=== PATIENT | male | born 1995 | race Caucasian/White ===

== ENCOUNTER 2021-08-29 03:32 | Emergency (ER) | payer SELFPAY ==
[~2021-08-29] VITALS: Ht 177.8 cm; Wt 90.0 kg
--- NOTE | 2021-08-29 04:09 | PHYS DOC ---
General Adult EDM: Chief Complaint: ABDOMINAL PAIN HPI: HPI: Patient is a 26 year old male who presents here with left lower quadrant abdominal pain, which has been intermittent but progressive for the past few months. The pain seemed worse last night, there was improved at present. He reports occasional nausea and vomiting. He denies acute bowel habit changes. He denies fevers or chills. He denies urinary symptoms. He denies flank or back pain. He denies any weight loss. He reports having decreased appetite, with little food intake over the last few days. No previous abdominal surgeries reported. He has not sought care before today. He does not currently have a primary care physician. Review of Systems: Review of Systems: Constitutional: Denies fever or chills. [] Eyes: Denies change in visual acuity. [] HENT: Denies nasal congestion or sore throat. [] Respiratory: Denies cough or shortness of breath. [] Cardiovascular: Denies chest pain or edema. [] GI: Abdominal pain and nausea and vomiting. Denies bowel habit changes. : Denies urinary symptoms. Musculoskeletal: Denies back pain or joint pain. [] Integument: Denies rash. [] Neurologic: Denies headache, focal weakness or sensory changes. [] Psychiatric: Denies depression or anxiety. [] Heart Score: C/O Chest Pain: No Risk Factors: Risk Factors: DM, Current or recent (<one month) smoker, HTN, HLP, family history of CAD, obesity. Risk Scores: Score 0 - 3: 2.5% MACE over next 6 weeks - Discharge Home Score 4 - 6: 20.3% MACE over next 6 weeks - Admit for Clinical Observation Score 7 - 10: 72.7% MACE over next 6 weeks - Early Invasive Strategies Physical Exam: PE: Constitutional: Well developed, well nourished, no acute distress, non-toxic appearance. [] HENT: Normocephalic, atraumatic Eyes: Sclera are clear and anicteric Neck: Normal range of motion, no tenderness, supple, no stridor. [] Cardiovascular:Heart rate regular rhythm, +2 radial and +2 posterior tibial pulses bilaterally Lungs & Thorax: Bilateral breath sounds clear to auscultation [] Abdomen: Abdomen soft, nondistended, minimal left lower quadrant tenderness, no rebound tenderness, no guarding. Normal bowel sounds. No palpable masses organomegaly. No CVA tenderness. No flank or abdominal ecchymoses. No palpable pulsatile mass Skin: Warm, dry, no erythema, no rash. [] Back: No tenderness, no CVA tenderness. [] Extremities: No tenderness, no cyanosis, no clubbing, ROM intact, no edema. No calf tenderness Neurologic: Alert and oriented X 3, normal motor function, normal sensory function, no focal deficits noted. [] Psychologic: Affect normal, judgement normal, mood normal. He is pleasant and cooperative. EKG: EKG: [] Radiology/Procedures: Radiology/Procedures: IMAGING REPORT Signed PATIENT: TABATHA THOMASON CACCOUNT: [id number] : 1995 LOCATION: ER AGE: 26 SEX: M EXAM STATUS: REG ER ORD. PHYSICIAN: J CARLOS,KRUNAL Ritter DO REASON: abdominal pain, n/v/diarrhea;OMNI 300, 75ML PROCEDURE: CT ABD PELV W/ IV CONTRST ONLY CT ABDOMEN+PELVIS W History: abdominal pain, n/v/diarrhea Comparison: None. Technique: After administration of intravenous contrast, helical CT of the abdomen and pelvis was performed from the lung bases through the ischial tubero sities. Coronal and sagittal reconstructions were obtained. 75 mL of Omnipaque 300 were used. One or more of the following dose reduction techniques were utilized: Automated exposure control (AEC), Adjustment of mA and/or kV according to patient size, Use of iterative reconstruction technique such as ASiR, CT scan done according to ALARA and image gently/image wisely Abdomen Findings: The visualized lung bases are clear. Focal fatty infiltration along the falciform ligament. Cholelithiasis. Pancreas, spleen, and bilateral adrenal glands are normal. Symmetric renal enhancement. There is no focal renal mass. There is no hydronephrosis. The visualized loops of small bowel are normal. The visualized loops of large bowel are normal. There is no evidence of bowel obstruction. Appendix is normal. There is no free fluid. There is no mesenteric or retroperitoneal adenopathy. The abdominal aorta is normal in caliber. Pelvis Findings: Urinary bladder is decompressed. No pelvic free fluid. There is no pelvic or inguinal adenopathy. There is no acute bony abnormality. IMPRESSION: 1. No acute findings. 2. Cholelithiasis. Electronically signed by: Satinder Enriquez MD (08/29/2021 5:19 AM) [facility] DICTATED and SIGNED BY: SATINDER ENRIQUEZ MD DATE: 08/29/21 [id number] 0 Course & Med Decision Making: Course & Med Decision Making Pertinent Labs and Imaging studies reviewed. (See chart for details) I discussed the findings, differential diagnosis and plan of care with the patient. He is resting comfortably, declines pain medicine, denies nausea. He has a benign, nonsurgical abdominal exam. CT abdomen pelvis reveals findings of cholelithiasis. He has no evidence of cholecystitis, he has no subjective right upper quadrant abdominal pain, no objective tenderness in this area. No indication for further invasive exams, imaging or admission at this time. He is given outpatient general surgery information, should biliary colic or sympto matic cholelithiasis symptoms occur. He feels comfortable with the plan for discharge home. He reports that he is hungry, he feels like going home and eating. Strict return precautions are given. He verbalized understanding. Rebeccaon Disclaimer: [employer] Disclaimer: This electronic medical record was generated, in whole or in part, using a voice recognition dictation system. Departure Departure Impression: Primary Impression: Left lower quadrant abdominal pain Additional Impression: Cholelithiasis Qualified Codes: K80.80 - Other cholelithiasis without obstruction Disposition: HOME / SELF CARE / HOMELESS Condition: STABLE Referrals: NO PCP (PCP) GARETH MURRAY MD Patient Instructions: Abdominal Pain (Nonspecific), Cholelithiasis Additional Instructions: Return to the ER for more severe pain, uncontrolled vomiting, temperature 100.4 or higher, or for any other concerns. You do have gallstones on your CAT scan, but if you do not have any right upper quadrant abdominal pain or upper abdominal pain with vomiting and inability to eat, you may choose to just watch this. If you become symptomatic with these, you may wish to see an outpatient general surgeon. I recommend eating a bland, low-fat diet. Follow-up with your primary care physician Scripts Ondansetron Hcl (ZOFRAN) 4 Mg Tablet 4 MG PO PRN TID PRN for VOMITING, #20 TAB nausea/vomiting Prov: KRUNAL WHITMAN DO 08/29/21 KRUNAL WHITMAN DO Aug 29, 2021 04:09
[2021-08-29] MEDS ORDERED: IV NORMAL SALINE 1000ML BAG 1,000 ML IV ONE (04:30)
[2021-08-29 04:47] LABS: BASO % 0 % (0-3); EOS % 0 % (0-3); HEMATOCRIT 43.7 % (39.0-53.0); LYMPH # 1.6 x10^3/uL (1.0-4.8); LYMPH % 9 % (24-48); MEAN CORPUSCULAR HEMOGLOBIN 30 pg (25-35); MEAN CORPUSCULAR HGB CONC 34 g/dL (31-37); MEAN CORPUSCULAR VOLUME 87 fL (79-100); MONO # 0.6 x10^3/uL (0.0-1.1); MONO % 3 % (0-9); NEUT # 16.6 x10^3/uL (1.8-7.7); NEUT % 88 % (31-73); PLATELET COUNT 310 x10^3/uL (140-400); RED BLOOD COUNT 5.03 x10^6/uL (4.30-5.70); RED CELL DISTRIBUTION WIDTH 13.8 % (11.5-14.5); WHITE BLOOD COUNT 18.9 x10^3/uL (4.0-11.0)
[2021-08-29 04:55] LABS: CALCIUM 9.4 mg/dL (8.5-10.1); CREATININE 1.2 mg/dL (0.7-1.3); GFR 73.2; POTASSIUM 3.8 mmol/L (3.5-5.1)
[2021-08-29] MEDS ORDERED: IOHEXOL 300 MG/ML 100ML VIAL. IV ONE (05:00)
[2021-08-29] MEDS ORDERED: CONTRAST GIVEN. MC PRN (05:00)
[2021-08-29 05:01] LABS: ALBUMIN 4.4 g/dL (3.4-5.0); ALBUMIN/GLOBULIN RATIO 1.1 (1.0-1.7); TOTAL BILIRUBIN 0.4 mg/dL (0.2-1.0); TOTAL PROTEIN 8.5 g/dL (6.4-8.2)
[2021-08-29 05:09] LABS: BILIRUBIN,URINE MODERATE (NEG); CLARITY,URINE CLEAR; COLOR,URINE AMBER; NITRITE,URINE NEGATIVE (NEG); PROTEIN,URINE 30 mg/dL (NEG-TRACE)
[2021-08-29 05:15] LABS: BACTERIA,URINE 0 /HPF (0-FEW); RBC,URINE 0 /HPF (0-2); WBC,URINE OCC /HPF (0-4)
--- NOTE | 2021-08-29 05:21 | RAD ---
CT ABDOMEN+PELVIS W History: abdominal pain, n/v/diarrhea Comparison: None. Technique: After administration of intravenous contrast, helical CT of the abdomen and pelvis was per formed from the lung bases through the ischial tuberosities. Coronal and sagittal reconstructions wer e obtained. 75 mL of Omnipaque 300 were used. One or more of the following dose reduction techniques were utilized: Automated exposure control (AEC), Adjustment of mA and/or kV according to patient size , Use of iterative reconstruction technique such as ASiR, CT scan done according to ALARA and image g ently/image wisely Abdomen Findings: The visualized lung bases are clear. Focal fatty infiltration along the falciform ligament. Cholelithiasis. Pancreas, spleen, and bilatera l adrenal glands are normal. Symmetric renal enhancement. There is no focal renal mass. There is no hydronephrosis. The visualized loops of small bowel are normal. The visualized loops of large bowel are normal. There is no evidence of bowel obstruction. Appendix is normal. There is no free fluid. There is no mesenteric or retroperitoneal adenopathy. The abdominal aorta is normal in caliber. Pelvis Findings: Urinary bladder is decompressed. No pelvic free fluid. There is no pelvic or inguinal adenopathy. There is no acute bony abnormality. IMPRESSION: 1. No acute findings. 2. Cholelithiasis. Electronically signed by: Tee Enriquez MD (08/29/2021 5:19 AM) [facility]
[2021-08-29 05:27] LABS: % LYMPHS 12 % (24-48); % MONOS 2 % (0-10); % SEGS 86 % (35-66); PLT ESTIMATE ADEQUATE (ADEQUATE)
[2021-08-29 05:57] VITALS: BP 134/61
[2021-08-29] MEDS ORDERED: ONDA4TAB7 PO (07:00)
== END 2021-08-29 07:15 | disposition home or self-care (01) ==
LOC: ER 03:32
DX: K80.80 Other cholelithiasis without obstruction (principal)
CPT/HCPCS: 36415; 74177; 80053; 81001; 83690; 85007; 85025; 96360; 99285; J7030; Q9967